=== PATIENT | male | born 1990 | race American Indian/Alaskan Native ===

== ENCOUNTER 2018-10-21 16:52 | Emergency (ER) | payer SELFPAY ==
[2018-10-21 17:13] VITALS: BP 143/77
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
== END 2018-10-21 18:11 | disposition home or self-care (01) ==
LOC: ED 16:52
DX: M25.561 Pain in right knee (principal)
CPT/HCPCS: 99282